=== PATIENT | male | born 1980 | race Caucasian/White ===

== ENCOUNTER 2017-11-30 18:34 | Emergency (ER) | payer OTHER ==
[2017-11-30] MEDS ORDERED: Ondansetron 4 MG/2 ML SDV IVPUSH ONE (19:12)
[2017-11-30] MEDS ORDERED: Sodium Chloride 0.9% 1,000 ML IV ONE (19:12)
[2017-11-30] MEDS ORDERED: Sodium Chloride 0.9% 10 ML Syringe FLUSH PRN (19:12)
[2017-11-30] MEDS ORDERED: HYDROmorphone 0.5 MG/0.5 ML Syringe IVPUSH ONE ×2 (19:12→19:58)
[2017-11-30] MEDS ORDERED: HYDROmorphone 0.5 MG/0.5 ML SYRINGE ONE ×2 (19:21→20:01)
--- NOTE | 2017-11-30 20:41 | EDM.PDOC ---
ED HPI GENERAL MEDICAL PROBLEM - General Chief Complaint: Flank Pain Stated Complaint: POSS KIDNEY STONE Time Seen by Provider: 11/30/17 18:53 Source of Information: Reports: Patient History Limitations: Reports: No Limitations - History of Present Illness INITIAL COMMENTS - FREE TEXT/NARRATIVE: 37-year-old male presents for evaluation and treatment of left lower quadrant abdominal pain. Patient reports symptoms started last night. He thought he was constipated this morning but had a bowel movement and his symptoms do not improve. Steadily throughout the day symptoms have worsened. He describes pain in the left lower abdomen that started as a dull pain but is now more sharp and stabbing. He also feels pain going into his groin. He has had multiple kidney stones in the past. Most recently had a stone one year ago that passed without intervention. He has required intervention in the past to remove these. He reports associated symptoms of nausea. No dysuria, hematuria, vomiting, back pain or flank pain. He states he has appreciated decreased urine output despite drinking plenty of fluids. CT had a colonoscopy about 5 years ago. Bilateral Abdomen Pain Score (Numeric/FACES): 8 - Related Data Allergies Allergy/AdvReac Type Severity Reaction Status Date / Time Penicillins Allergy Shortness Verified 11/30/17 18:38 of Breath Home Meds: Home Meds Escitalopram Oxalate 20 mg PO DAILY 10/19/13 [History] Ibuprofen 600 mg PO Q6H PRN 12/26/13 [History] Lisinopril/Hydrochlorothiazide [Lisinopril-Hctz 10-12.5 mg Tab] 10 - 12.5 mg PO DAILY 10/04/15 [History] Methylcellulose [Citrucel] 1 tab PO DAILY 10/04/15 [History] buPROPion [Wellbutrin SR] 300 mg PO DAILY 10/04/15 [History] Esomeprazole Magnesium [Nexium] 40 mg PO DAILY 10/07/15 [History] Acetaminophen/oxyCODONE [Percocet 325-5 MG] 1 tab PO Q4HR PRN #20 tab 11/30/17 [ Rx] Levofloxacin [Levaquin] 750 mg PO DAILY #9 tablet 11/30/17 [Rx] metroNIDAZOLE [Flagyl] 500 mg PO Q8H #29 tab 11/30/17 [Rx] Past Medical History HEENT History: Reports: Impaired Vision Other HEENT History: wears eyeglasses Cardiovascular History: Reports: Hypertension Other Respiratory History: negative sleep study per patient Gastrointestinal History: Reports: GERD Genitourinary History: Reports: Renal Calculus Neurological History: Reports: Head Trauma Psychiatric History: Reports: Addiction, Anxiety, Depression Endocrine/Metabolic History: Reports: Obesity/BMI 30+ Dermatologic History: Reports: Other (See Below) Other Dermatologic History: acne preteen. - Infectious Disease History Infectious Disease History: Reports: Chicken Pox - Past Surgical History GI Surgical History: Reports: Cholecystectomy, Colonoscopy, EGD, Hernia Repair/ Other, Other (See Below) Other GI Surgeries/Procedures: fistula to rectal area. Social & Family History - Tobacco Use Smoking Status *Q: Former Smoker Used Tobacco, but Quit: Yes Month/Year Tobacco Last Used: July 2016 - Caffeine Use Caffeine Use: Reports: Coffee, Soda - Recreational Drug Use Recreational Drug Use: No ED ROS GENERAL - Review of Systems Review Of Systems: See Below GI/Abdominal: Reports: Abdominal Pain (LLQ), Nausea. Denies: Vomiting : Reports: Other (reports decreased urinary output). Denies: Dysuria, Flank Pain, Hematuria Musculoskeletal: Denies: Back Pain ED EXAM, GI/ABD - Physical Exam Exam: See Below Exam Limited By: No Limitations General Appearance: Alert, WD/WN, Mild Distress, Obese Throat/Mouth: Normal Inspection, Normal Voice, No Airway Compromise Neck: Normal Inspection Respiratory/Chest: No Respiratory Distress, Lungs Clear, Normal Breath Sounds Cardiovascular: Normal Peripheral Pulses, No Murmur, Tachycardia GI/Abdominal Exam: Normal Bowel Sounds, Soft, No Organomegaly, No Distention, No Mass, Tender (LLQ) Back Exam: No: CVA Tenderness (L), CVA Tenderness (R) Neurological: Alert, Oriented, Normal Cognition Psychiatric: Normal Affect, Normal Mood Skin Exam: Warm, Dry, Normal Color Course - Vital Signs Last Recorded V/S: Last Vital Signs Temp 99.9 F 11/30/17 18:35 Pulse 117 H 11/30/17 21:16 Resp 16 11/30/17 21:16 BP 115/61 11/30/17 21:16 Pulse Ox 94 L 11/30/17 21:16 - Orders/Labs/Meds Orders: Active Orders 24 hr Category Date Time Status Peripheral IV Care [RC] . DIRECTED Care 11/30/17 19:12 Active Peripheral IV Insertion Adult [OM.PC] Routine Oth 11/30/17 19:12 Ordered Labs: Laboratory Tests 11/30/17 11/30/17 Range/Units 18:40 18:40 WBC 16.50 H (4.23-9.07) K/mm3 RBC 5.30 (4.63-6.08) M/mm3 Hgb 15.7 (13.7-17.5) gm/L Hct 45.6 (40.1-51.0) % MCV 86.0 (79.0-92.2) fl MCH 29.6 (25.7-32.2) pg MCHC 34.4 (32.2-35.5) g/dl RDW Std Deviation 44.1 H (35.1-43.9) fL Plt Count 272 (163-337) K/mm3 MPV 9.1 L (9.4-12.3) fl Neut % (Auto) 79.0 H (34.0-67.9) % Lymph % (Auto) 12.1 L (21.8-53.1) % Harrison % (Auto) 8.2 (5.3-12.2) % Eos % (Auto) 0.1 L (0.8-7.0) Baso % (Auto) 0.2 (0.1-1.2) % Neut # (Auto) 13.02 H (1.78-5.38) K/mm3 Lymph # (Auto) 2.00 (1.32-3.57) K/mm3 Harrison # (Auto) 1.35 H (0.30-0.82) K/mm3 Eos # (Auto) 0.02 L (0.04-0.54) K/mm3 Baso # (Auto) 0.04 (0.01-0.08) K/mm3 Sodium 138 (136-145) mEq/L Potassium 3.4 L (3.5-5.1) mEq/L Chloride 100 (98-107) mEq/L Carbon Dioxide 23 (21-32) mEq/L Anion Gap 18.4 H (5-15) BUN 12 (7-18) mg/dL Creatinine 1.2 (0.7-1.3) mg/dL Est Cr Clr Drug Dosing 87.03 mL/min Estimated GFR (MDRD) > 60 (>60) mL/min BUN/Creatinine Ratio 10.0 L (14-18) Glucose 133 H (74-106) mg/dL Calcium 8.8 (8.5-10.1) mg/dL Total Bilirubin 1.8 H (0.2-1.0) mg/dL AST 30 (15-37) U/L ALT 46 (16-63) U/L Alkaline Phosphatase 71 (46-116) U/L C-Reactive Protein 5.6 H* (<1.0) mg/dL Total Protein 8.6 H (6.4-8.2) g/dl Albumin 4.3 (3.4-5.0) g/dl Globulin 4.3 gm/dL Albumin/Globulin Ratio 1.0 (1-2) Meds: Medications Discontinued Medications Generic Name Dose Route Start Last Admin Trade Name Freq PRN Reason Stop Dose Admin Hydromorphone HCl 0.5 mg 11/30/17 19:12 11/30/17 19:25 Dilaudid IVPUSH 11/30/17 19:13 0.5 mg ONETIME ONE Administration Hydromorphone HCl Confirm 11/30/17 19:21 11/30/17 19:25 Dilaudid Administered 11/30/17 19:22 Not Given Dose 0.5 mg .ROUTE .STK-MED ONE Hydromorphone HCl 0.5 mg 11/30/17 19:58 11/30/17 20:02 Dilaudid IVPUSH 11/30/17 19:59 0.5 mg ONETIME ONE Administration Hydromorphone HCl Confirm 11/30/17 20:01 11/30/17 21:47 Dilaudid Administered 11/30/17 20:02 Not Given Dose 0.5 mg .ROUTE .STK-MED ONE Sodium Chloride 1,000 mls @ 999 mls/hr 11/30/17 19:12 11/30/17 19:24 Normal Saline IV 11/30/17 20:12 999 mls/hr ONETIME ONE Administration Levofloxacin 750 mg 11/30/17 20:52 11/30/17 21:17 Levaquin PO 11/30/17 20:53 750 mg ONETIME ONE Administration Metronidazole 500 mg 11/30/17 20:52 11/30/17 21:17 Flagyl PO 11/30/17 20:53 500 mg ONETIME ONE Administration Ondansetron HCl 4 mg 11/30/17 19:12 11/30/17 19:25 Zofran IVPUSH 11/30/17 19:13 4 mg ONETIME ONE Administration Sodium Chloride 10 ml 11/30/17 19:12 11/30/17 19:25 Saline Flush FLUSH 10 ml ASDIRECTED PRN Administration Keep Vein Open - Radiology Interpretation Free Text/Narrative:: CT of the abdomen and pelvis without contrast impression per [facility]: acute sigmoid diverticulitis. No evidence for perforation, drainable abscess, bowel obstruction or fistula. - Re-Assessments/Exams Free Text/Narrative Re-Assessment/Exam: 11/30/17 20:50 I reviewed the labs and imaging with the patient. He still feels sore but his pain has improved. He has diverticulitis. We will treat with Levaquin and Flagyl. Close follow-up in the clinic. This appears to be uncomplicated case, no abscess or perforation seen. I believe he can be successfully treated as an outpatient. Instructed to return to the ER for symptoms change or worsen. Discharge instructions as documented. Departure - Departure Time of Disposition: 20:53 Disposition: Home, Self-Care 01 Condition: Fair Clinical Impression: Diverticulitis - Discharge Information *PRESCRIPTION DRUG MONITORING PROGRAM REVIEWED*: No *COPY OF PRESCRIPTION DRUG MONITORING REPORT IN PATIENT ABUNDIO: No Prescriptions: Acetaminophen/oxyCODONE [Percocet 325-5 MG] 1 tab PO Q4HR PRN #20 tab PRN Reason: Pain Levofloxacin [Levaquin] 750 mg PO DAILY #9 tablet metroNIDAZOLE [Flagyl] 500 mg PO Q8H #29 tab Instructions: Diverticulitis, [id number] Referrals: Vic Harris MD [Primary Care Provider] - Forms: ED Department Discharge Additional Instructions: You were given medication in the ER that can affect your ability to drive and operate machinery. Do not drive or operate machinery within 10 hours of taking prescription narcotic pain medication. Levaquin 1 tab PO daily x 10 days. First dose given in the ER start your Rx tomorrow. Flagyl 1 tab PO every 8 hours x 10 days. First dose given in the ER start your Rx tomorrow morning. Percocet 1-2 tabs PO every 4-6 hours prn pain. Percocet is habit forming, take as few of these as needed to control your pain. Do not drive or operate machinery within 10 hours of taking percocet. Follow-up with your PCP within 1 week. Clear fluids next 2-3 days. May advance to a soft diet as tolerated. Please return to the ER should your symptoms change or worsen. - My Orders Last 24 Hours: My Active Orders 11/30/17 19:12 Peripheral IV Care [RC] . DIRECTED Peripheral IV Insertion Adult [OM.PC] Routine - Assessment/Plan Last 24 Hours: My Active Orders 11/30/17 19:12 Peripheral IV Care [RC] . DIRECTED Peripheral IV Insertion Adult [OM.PC] Routine
[2017-11-30] MEDS ORDERED: Levofloxacin 250 MG Tab PO ONE (20:52)
[2017-11-30] MEDS ORDERED: metroNIDAZOLE 500 MG Tab PO ONE (20:52)
[2017-11-30 21:17] VITALS: BP 115/61
--- NOTE | 2017-12-01 09:43 | CT ---
CT abdomen and pelvis Technique: Multiple axial sections were obtained from above the dome of the diaphragm inferiorly through the pubic symphysis. Intravenous and oral contrast not utilized. Study has been performed as a ureteral stone protocol. Comparison: Prior CT abdomen and pelvis exam of 06/22/11. Findings: Inflammatory change identified around a diverticuli within the sigmoid colon compatible with diverticulitis. No fluid collections of abscess are seen. Multiple nonobstructing calculi are seen within both kidneys. These non-obstructing calculi have minimally changed from prior CT exam. No ureteral dilatation or ureteral stone is seen. Liver shows diffuse fatty infiltration. Adrenal glands show no nodule. Pancreas is within normal limits. Surgical clips are noted from prior cholecystectomy. Aorta shows no aneurysmal dilatation. No retroperitoneal adenopathy or mesenteric abnormalities are otherwise seen. No pelvic mass or adenopathy is seen. Bone window settings were reviewed which show no acute osseous abnormality. Impression: 1. Inflammatory change around a sigmoid diverticula compatible with diverticulitis. No fluid collections of abscess are seen. 2. Diffuse fatty infiltration throughout the liver. 3. Multiple nonobstructing calculi within both kidneys which have minimally changed from previous CT exam. Diagnostic code #3 I agree with preliminary report issued by [facility], ([facility] report finalized on 11/30/17, 9:41 PM Central Time)
== END 2017-11-30 21:22 | disposition home or self-care (01) ==
LOC: JD.ED 18:34
DX: K57.32 Diverticulitis of large intestine without perforation or abscess without bleeding (principal); I10 Essential (primary) hypertension; K21.9 Gastro-esophageal reflux disease without esophagitis; F41.9 Anxiety disorder, unspecified; F32.9 Major depressive disorder, single episode, unspecified; Z87.891 Personal history of nicotine dependence; Z88.0 Allergy status to penicillin; Z79.899 Other long term (current) drug therapy
CPT/HCPCS: 36415; 74176; 80053; 85025; 86140; 96361; 96374; 96375; 96376; 99284; A9270; J1170; J2405; J7040; J7050

== ENCOUNTER 2018-11-28 09:36 | Day surgery (SDC) | payer OTHER ==
[~2018-11-28 09:36] MED LIST: Lidocaine 1%/Sod Bicarbonate in NS 8.4% 1 ML Syringe IDERM PRN; Sodium Chloride 0.9% 10 ML Syringe FLUSH PRN
--- NOTE | 2018-11-28 10:30 | PCM.PREANE ---
Preanesthetic Assessment - Anesthesia/Transfusion/Family Hx Anesthesia History: Prior Anesthesia Without Reaction Family History of Anesthesia Reaction: No Transfusion History: No Prior Transfusion(s) - Review of Systems General: No Symptoms Pulmonary: No Symptoms Cardiovascular: No Symptoms Gastrointestinal: No Symptoms Neurological: No Symptoms Other: Reports: None - Physical Assessment NPO Status Date: 11/27/18 NPO Status Time: 20:00 Pulse: 78 O2 Sat by Pulse Oximetry: 96 Respiratory Rate: 16 Blood Pressure: 143/94 Temperature: 98.7 C ASA Class: 2 Mental Status: Alert & Oriented x3 Airway Class: Mallampati = 1 Dentition: Reports: Normal Dentition Thyro-Mental Finger Breadths: 3 Mouth Opening Finger Breadths: 3 ROM/Head Extension: Full Lungs: Clear to Auscultation, Normal Respiratory Effort Cardiovascular: Regular Rate, Regular Rhythm - Allergies Allergies/Adverse Reactions: Allergies Allergy/AdvReac Type Severity Reaction Status Date / Time Penicillins Allergy Shortness Verified 11/30/17 18:38 of Breath - Acknowledgements Anesthesia Type Planned: MAC Pt an Appropriate Candidate for the Planned Anesthesia: Yes Alternatives and Risks of Anesthesia Discussed w Pt/Guardian: Yes Pt/Guardian Understands and Agrees with Anesthesia Plan: Yes PreAnesthesia Questionnaire HEENT History: Reports: Impaired Vision Other HEENT History: wears eyeglasses Cardiovascular History: Reports: Hypertension Respiratory History: Reports: SOB (SOB with exertion) Other Respiratory History: negative sleep study per patient Gastrointestinal History: Reports: GERD Genitourinary History: Reports: Renal Calculus TRANSITION ADVISOR History: Reports: None Musculoskeletal History: Reports: None Neurological History: Reports: Head Trauma Psychiatric History: Reports: Addiction, Anxiety, Depression Endocrine/Metabolic History: Reports: Obesity/BMI 30+ Hematologic History: Reports: None Immunologic History: Reports: None Oncologic (Cancer) History: Reports: None Dermatologic History: Reports: Other (See Below) Other Dermatologic History: acne preteen. - Infectious Disease History Infectious Disease History: Reports: Chicken Pox - Past Surgical History Head Surgeries/Procedures: Reports: None HEENT Surgical History: Reports: Other (See Below) Other HEENT Surgeries/Procedures: wisdom teeth Respiratory Surgical History: Reports: None GI Surgical History: Reports: Cholecystectomy, Colonoscopy, EGD, Hernia Repair/ Other (umbilical), Other (See Below) Other GI Surgeries/Procedures: fistula to rectal area. Female Surgical History: Reports: None Male Surgical History: Reports: None Endocrine Surgical History: Reports: None Neurological Surgical History: Reports: Laminectomy Musculoskeletal Surgical History: Reports: Carpal Tunnel Oncologic Surgical History: Reports: None Dermatological Surgical History: Reports: Other (See Below) - SUBSTANCE USE Smoking Status *Q: Former Smoker Recreational Drug Use History: No - HOME MEDS Home Medications: Home Meds Lisinopril/Hydrochlorothiazide [Lisinopril-Hctz 10-12.5 mg Tab] 10 - 12.5 mg PO DAILY 10/04/15 [History] Methylcellulose [Citrucel] 2 tab PO BID 10/04/15 [History] buPROPion [Wellbutrin SR] 300 mg PO DAILY 10/04/15 [History] FLUoxetine HCl [Prozac] 20 mg PO DAILY 11/25/18 [History] Omeprazole Magnesium [Prilosec Otc] 20 mg PO DAILY 11/25/18 [History] Zolpidem [Ambien] 5 - 10 mg PO BEDTIME PRN 11/25/18 [History] - CURRENT (IN HOUSE) MEDS Current Meds: Current Medications Lactated Ringer's (Ringers, Lactated) 1,000 mls @ 125 mls/hr IV ASDIRECTED TOÑO Lidocaine/Sodium Bicarbonate (Buffered Lidocaine 1% In Ns 8.4%) 0.25 ml IDERM ONETIME PRN PRN Reason: Prior to IV Start Sodium Chloride (Saline Flush) 10 ml FLUSH ASDIRECTED PRN PRN Reason: Keep Vein Open
[2018-11-28] MEDS: Lactated Ringers 1,000 ML IV SCH ×2 (10:35→12:52)
[2018-11-28] MEDS ORDERED: Midazolam 1 MG/ML 2 ML SDV ONE ×2 (10:40→14:52)
[2018-11-28] MEDS ORDERED: Propofol 200 MG/20 ML SDV ONE (10:41)
[2018-11-28] MEDS ORDERED: fentaNYL 100 MCG/2 ML SDV ONE (10:41)
[2018-11-28] MEDS ORDERED: Lidocaine 1% 2 ML ONE ×2 (10:41→10:42)
[2018-11-28] MEDS ORDERED: Lidocaine 2% 100 MG/5 ML Syringe ONE (10:41)
[2018-11-28] MEDS ORDERED: Lidocaine 1% 30 ML SDV ONE (12:42)
[2018-11-28] MEDS ORDERED: Lidocaine 1% with EPINEPHrine 1:100,000 20 ML MDV ONE (14:33)
[2018-11-28] MEDS ORDERED: ceFAZolin 1 GM Vial ONE ×3 (14:56→14:57)
[2018-11-28] MEDS ORDERED: Ketorolac 30 MG/ML SDV ONE (15:17)
--- NOTE | 2018-11-28 15:35 | PCM48HPAN ---
Post Anesthesia Note - EVALUATION WITHIN 48HRS OF ANESTHETIC Vital Signs in Normal Range: Yes Patient Participated in Evaluation: Yes Respiratory Function Stable: Yes Airway Patent: Yes Cardiovascular Function Stable: Yes Hydration Status Stable: Yes Pain Control Satisfactory: Yes Nausea and Vomiting Control Satisfactory: Yes Mental Status Recovered: Yes Pulse Rate: 84 SaO2: 95 Resp Rate: 16 Temperature: 98.7 C Blood Pressure: 127/69
--- NOTE | 2018-11-28 15:54 | PCM.OPNOTE ---
- General Post-Op/Procedure Note Date of Surgery/Procedure: 11/28/18 Operative Procedure(s): Excision of left scalp epidermaoid cyst wall Findings: residual cyst wall Pre Op Diagnosis: Infected scalp epidermoid cyst Post-Op Diagnosis: Infected scalp epidermoid cyst Anesthesia Technique: [facility] Primary Surgeon: Seema Castaneda Anesthesia Provider: Glendy Richardson Fluid Replacement, Intraop: 900 Complications: None Condition: Good
[2018-11-28 16:26] VITALS: BP 130/74
--- NOTE | 2018-11-28 17:32 | OR ---
DATE OF OPERATION: 11/28/2018 SURGEON: Seema Castaneda MD PREOPERATIVE DIAGNOSIS: Infected epidermoid cyst of the scalp. POSTOPERATIVE DIAGNOSIS: Infected epidermoid cyst of the scalp. OPERATION PERFORMED: Excision of cyst wall of the infected epidermoid cyst of the scalp. Wound size is 3 cm in length. ANESTHESIA: MAC. COMPLICATIONS: None. ESTIMATED BLOOD LOSS: 2 mL. INDICATIONS AND CONSENT: Mr. Georges is a 38-year-old male who presented to clinic for evaluation of a 3 cm scalp cyst that was present for about 5 months. The cyst had begun to cause him some pain in the scalp fold without any fevers or chills; therefore, the patient presented for evaluation of the cyst. At that time, the cyst was noted to be infected, I and D was performed, and the patient was asked to pack the wound daily and follow up in the week. At followup, the wound was draining purulent material, however, the inflammation had subsided. Therefore, the decision was made to proceed with cyst wall excision of the epidermoid cyst. Risks, benefits, and alternatives to the procedure were discussed with the patient. Risks discussed include bleeding, infection, recurrence. The patient agreed to proceed with the procedure and informed consent was obtained. DESCRIPTION OF PROCEDURE: The patient was met in the preop area and after confirmation of patient's identity, the patient was taken to the operating room, placed on the stretcher, turned into right decubitus position exposing the left side of the scalp, and then monitored anesthesia was induced. The left scalp was prepped and draped in the usual sterile fashion, and then a formal time-out was performed prior to the start of the procedure. I began the procedure by injecting local anesthetic consisting of 1% lidocaine with epinephrine. Then, the wound was reopened making the incision 3 cm long. Then, there was obvious cyst wall that was occupying the entirety of the wound bed. This was removed sharply with dissection scissors as well as scraped with a scraping tool. This was carried down toward the entirety of the wound cavity making sure to leave no obvious cyst wall. Then, cautery was used to obliterate the entire wound so as to obliterate any remaining wall material. The wound was rinsed, hemostasis achieved, and then the edges of the wound were reapproximated with 3-0 Prolene stitches leaving a 1 cm gap in between, which was used to pack the wound with a 1/4-inch iodoform gauze. All instruments, sharps, and sponges were encountered and found to be correct x2. The patient was awakened from monitored anesthesia and taken to the PACU in stable condition. Plan would be for the patient to continue packing the wound with 1/4-inch iodoform gauze once daily and follow up with me in clinic for wound check in 2 weeks. Plan was discussed with the patient. LOGAN /[id number]
--- NOTE | 2018-12-05 15:27 | PCM.SN ---
- Free Text/Narrative Note: 12/05/2018 This is an update regarding the cyst excision procedure performed on 11/28/2018. The cyst had been drained but recurred due to persistent cyst wall. The cyst wall was then excised on that date (11/28/2018). No margins for this excision.
== END 2018-11-28 16:10 | disposition home or self-care (01) ==
LOC: JD.SDS 09:36
PROVIDERS: ATTEND Surgery
DX: L72.0 Epidermal cyst (principal); I10 Essential (primary) hypertension; F32.9 Major depressive disorder, single episode, unspecified; F41.9 Anxiety disorder, unspecified; E66.9 Obesity, unspecified; G47.33 Obstructive sleep apnea (adult) (pediatric); Z88.0 Allergy status to penicillin; Z68.41 Body mass index [BMI] 40.0-44.9, adult; Z87.891 Personal history of nicotine dependence; Z79.899 Other long term (current) drug therapy
CPT/HCPCS: 11423; J0690; J1885; J2001; J2250; J2704; J3010; J7120; 00300

== ENCOUNTER 2024-08-26 20:25 | Emergency (ER) | payer OTHER ==
[2024-08-26] MEDS: Ondansetron 4 MG/2 ML SDV IVPUSH ONE ×2 (20:30)
[2024-08-26 20:41] LABS: BASOPHILS ABSOLUTE AUTO 0.1 K/mm3 (0.0-0.2); BASOPHILS PERCENT AUTO 0.8 % (0.0-1.0); EOSINOPHILS ABSOLUTE AUTO 0.1 K/mm3 (0.0-0.4); HEMATOCRIT 50.5 % (42.0-52.0); HEMOGLOBIN 17.5 gm/dl (14.0-18.0); IMMATURE GRAN ABSOLUTE AUTO 0.05 K/mm3 (0.00-0.05); IMMATURE GRAN PERCENT AUTO 0.4 % (0.0-0.4); LYMPHOCYTES ABSOLUTE AUTO 2.3 K/mm3 (1.0-4.8); LYMPHOCYTES PERCENT AUTO 19.6 % (24.0-44.0); MEAN CORPUSCULAR HEMOGLOBIN 30.1 pg (28.0-32.0); MEAN CORPUSCULAR HGB CONC 34.7 g/dl (32.0-36.0); MEAN CORPUSCULAR VOLUME 86.8 fl (83.0-99.0); MEAN PLATELET VOLUME 8.8 fl (9.4-12.4); MONOCYTES PERCENT AUTO 8.4 % (0.0-8.0); NEUTROPHILS ABSOLUTE AUTO 8.1 K/mm3 (1.8-7.7); NEUTROPHILS PERCENT AUTO 69.8 % (41.0-71.0); PLATELET COUNT,PLT 274 K/mm3 (150-400); RED BLOOD CELL COUNT 5.82 M/mm3 (4.52-5.90); WHITE BLOOD CELL COUNT,WBC 11.61 K/mm3 (3.9-11.3)
[2024-08-26] MEDS: Sodium Chloride 0.9% 2,000 ML IV ONE (20:45)
[2024-08-26] MEDS: Magnesium Sulfate 2 GM/50 mL 2 GM/50 ML BAG IV ONE ×2 (20:45→21:54)
[2024-08-26] MEDS: Sodium Bicarbonate 8.4% 50 MEQ/50 ML Syringe IVPUSH ONE (20:48)
[2024-08-26] MEDS: Ondansetron 4 MG/2 ML SDV ONE (20:50)
[2024-08-26 21:03] LABS: A/G RATIO 1.2 (1-2); ACETAMINOPHEN 17 ug/mL (10-30); ALANINE AMINOTRANSFERASE,ALT 34 U/L (16-63); ALBUMIN 4.3 g/dl (3.4-5.0); ALKALINE PHOSPHATASE 101 U/L (46-116); ANION GAP 24.2 (5-15); ASPARTATE AMNIOTRANSFERASE,AST 32 U/L (15-37); BILIRUBIN TOTAL 1.3 mg/dL (0.2-1.0); BLOOD UREA NITROGEN,BUN 11 mg/dL (7-18); CALCIUM 9.2 mg/dL (8.5-10.1); CARBON DIOXIDE,CO2 18 mEq/L (21-32); CHLORIDE,CL 102 mEq/L (98-107); CREATINE KINASE,CK 519 U/L (39-308); ESTIMATED GFR 95 mL/min (>60); ETHANOL BLOOD MEDICAL 0.04 gm% (0.00); GLUCOSE RANDOM 122 mg/dL (70-99); LIPASE 116 U/L (16-77); MAGNESIUM 1.6 mg/dL (1.8-2.4); POTASSIUM,K 3.2 mEq/L (3.5-5.1); SODIUM,NA 141 mEq/L (136-145)
[2024-08-26] MEDS: Potassium Chloride 10 MEQ in Premix Bag 1 BAG IV ONE ×2 (21:25→22:33)
[2024-08-26 21:42] LABS: BASE EXCESS ARTERIAL 0.2 (-2-2.0); BICARBONATE,ARTERIAL 24.7 meq/L (22.0-26.0); O2 SATURATION ARTERIAL 94.8 % (96.0-97.0)
[2024-08-26] MEDS: Sodium Chloride 0.9% 1,000 ML IV SCH (23:00)
[2024-08-26] MEDS: Sodium Chloride 0.9% 1,000 ML ONE (23:09)
[2024-08-27 01:05] LABS: APPEARANCE,URINE CLEAR (Clear); BILIRUBIN,URINE NEGATIVE (Negative); COLOR,URINE YELLOW (Yellow); GLUCOSE,URINE NEGATIVE (Negative); KETONES,URINE 1+ (Negative); LEUKOCYTE ESTERASE,URINE NEGATIVE (Negative); NITRITE,URINE NEGATIVE (Negative); OCCULT BLOOD,URINE NEGATIVE (Negative); PROTEIN,URINE NEGATIVE (Negative); UROBILINOGEN,URINE 0.2 (0.2-1.0)
[2024-08-27 01:11] LABS: BARBITURATE SCREEN,URINE NEGATIVE (CUTOFF=200); BENZODIAZEPINES SCREEN,URINE PRESUMPTIVE POSITIVE (CUTOFF=150); BUPRENORPHINE SCREEN,URINE NEGATIVE (CUTOFF=10); METHADONE SCREEN, URINE NEGATIVE (CUT0FF=200); METHAMPHETAMINES SCREEN, URINE NEGATIVE (CUTOFF=500); OXYCODONE SCREEN,URINE NEGATIVE (CUT0FF=100); THC SCREEN,URINE 20 NG/ML NEGATIVE (CUTOFF=50)
[2024-08-27 01:13] LABS: AMPHETAMINES SCREEN, URINE NEGATIVE (CUTOFF=500)
[2024-08-27 02:59] LABS: BASOPHILS ABSOLUTE AUTO 0.1 K/mm3 (0.0-0.2); BASOPHILS PERCENT AUTO 0.4 % (0.0-1.0); HEMATOCRIT 45.9 % (42.0-52.0); IMMATURE GRAN ABSOLUTE AUTO 0.05 K/mm3 (0.00-0.05); IMMATURE GRAN PERCENT AUTO 0.4 % (0.0-0.4); LYMPHOCYTES ABSOLUTE AUTO 0.9 K/mm3 (1.0-4.8); LYMPHOCYTES PERCENT AUTO 6.7 % (24.0-44.0); MEAN CORPUSCULAR HEMOGLOBIN 30.6 pg (28.0-32.0); MEAN CORPUSCULAR HGB CONC 34.6 g/dl (32.0-36.0); MEAN CORPUSCULAR VOLUME 88.4 fl (83.0-99.0); MONOCYTES ABSOLUTE AUTO 0.4 K/mm3 (0.0-0.8); MONOCYTES PERCENT AUTO 3.4 % (0.0-8.0); NEUTROPHILS ABSOLUTE AUTO 11.3 K/mm3 (1.8-7.7); NEUTROPHILS PERCENT AUTO 89.1 % (41.0-71.0); PLATELET COUNT,PLT 218 K/mm3 (150-400); RED BLOOD CELL COUNT 5.19 M/mm3 (4.52-5.90); WHITE BLOOD CELL COUNT,WBC 12.64 K/mm3 (3.9-11.3)
[2024-08-27 03:13] LABS: HEMOGLOBIN 15.9 gm/dl (14.0-18.0)
[2024-08-27 03:25] LABS: A/G RATIO 1.2 (1-2); ALBUMIN 4.1 g/dl (3.4-5.0); ANION GAP 18.7 (5-15); BILIRUBIN TOTAL 1.3 mg/dL (0.2-1.0); BUN/CREATININE RATIO 6.4 (14-18); CALCIUM 7.9 mg/dL (8.5-10.1); CREATININE 1.1 mg/dL (0.7-1.3); EST CRCL DRUG DOSING (CG) 82.91 mL/min; MAGNESIUM 2.1 mg/dL (1.8-2.4); POTASSIUM,K 3.7 mEq/L (3.5-5.1); PROTEIN TOTAL,TP 7.5 g/dl (6.4-8.2)
[2024-08-27] MEDS: LORazepam 2 MG/ML SDV IVPUSH PRN ×2 (03:54→07:26)
[2024-08-27] MEDS: Potassium Chloride 10 MEQ in Premix Bag 1 BAG IV ONE (04:01)
[2024-08-27 09:42] LABS: A/G RATIO 1.2 (1-2); ALBUMIN 4.1 g/dl (3.4-5.0); ANION GAP 17.9 (5-15); BILIRUBIN TOTAL 1.6 mg/dL (0.2-1.0); BUN/CREATININE RATIO 5.5 (14-18); CALCIUM 8.5 mg/dL (8.5-10.1); CREATININE 1.1 mg/dL (0.7-1.3); EST CRCL DRUG DOSING (CG) 82.91 mL/min; POTASSIUM,K 3.9 mEq/L (3.5-5.1); PROTEIN TOTAL,TP 7.6 g/dl (6.4-8.2)
[2024-08-27 13:04] VITALS: PULSE 120
[2024-08-27] MEDS: Lactated Ringers 1,000 ML IV SCH (13:55)
[2024-08-27 18:01] VITALS: BP 156/94
== END 2024-08-27 14:30 ==
LOC: JD.ED 20:25
DX: T43.222A Poisoning by selective serotonin reuptake inhibitors, intentional self-harm, initial encounter (principal); I10 Essential (primary) hypertension; K21.9 Gastro-esophageal reflux disease without esophagitis; Z90.49 Acquired absence of other specified parts of digestive tract; Z88.0 Allergy status to penicillin; Z79.899 Other long term (current) drug therapy
CPT/HCPCS: 36415; 36600; 70450; 71045; 80053; 80143; 80179; 80306; 80307; 81003; 82550; 82803; 83690; 83735; 83874; 85025; 93005; 96361; 96365; 96366; 96367; 96368; 96375; 96376; 99285; J2060; J2405; J3475; J3480; J7030; J7120; 93010; J3490